=== PATIENT | female | born 1960 | race Caucasian/White ===

== ENCOUNTER 2018-04-07 09:38 | Outpatient (REF) | payer MEDICAID, SELFPAY ==
[2018-04-07 20:55] LABS: HCT 47.2 % (36.0-46.0); HGB 15.7 g/dL (12.0-15.5); Mean Corp. HGB Concentration 33.3 g/dL (32.0-36.0); Mean Corpuscular Hemoglobin 29.8 pg (27.0-33.0); Mean Corpuscular Volume 89.7 fL (80-95); Mean Platelet Volume 12.3 fL (8.0-11.0); Platelet Count 163 x1000/uL (130-400); RBC 5.26 m/cumm (4.00-5.20); RBC Distribution Width 13.2 % (11.7-14.6); White Blood Cell Count 7.22 k/cumm (4.4-10.8)
[2018-04-07 21:10] LABS: ALT 71 U/L (12-78); AST 39 U/L (15-37); Albumin 4.1 g/dL (3.4-5.0); Alkaline Phosphatase 88 U/L (46-116); Anion Gap 14.2 mmol/L (3-11); BUN 19 mg/dL (7-18); Bilirubin, Total 0.3 mg/dL (0.2-1.0); CO2 24.8 mmol/L (21.0-32.0); CREATININE 0.77 mg/dL (0.55-1.02); Calcium 9.6 mg/dL (8.5-10.1); Chloride 101 mmol/L (98-107); Cholesterol 182 mg/dL (50-200); Glucose 240 mg/dL (70-100); HDL Cholesterol 49 mg/dL (40-60); LDL CHOLESTEROL 116 mg/dL (<100); Potassium 4.5 mmol/L (3.5-5.1); Sodium 140 mmol/L (136-145); Total Protein 7.9 g/dL (6.4-8.2); Triglyceride 142 mg/dL (30-150)
[2018-04-07 21:25] LABS: Hemoglobin A1C 6.6 % (4.5-6.2)
== END 2018-04-07 09:58 ==
LOC: NCHCN 09:38
PROVIDERS: PCP Family Medicine; Visit Provider Family Medicine
DX: Z85.43 Personal history of malignant neoplasm of ovary (principal)
CPT/HCPCS: 80053; 80061; 83721; 85027; 83036; 84443

== ENCOUNTER 2019-11-23 08:16 | Outpatient (REF) | payer MEDICAID, SELFPAY ==
[2019-11-23 21:31] LABS: ALT 42 U/L (14-59); Albumin 4.2 g/dL (3.4-5.0); Alkaline Phosphatase 67 U/L (46-116); Anion Gap 10.3 mmol/L (3-11); BUN 31 mg/dL (7-18); Bilirubin, Total 0.3 mg/dL (0.2-1.0); CO2 24.7 mmol/L (21.0-32.0); CREATININE 0.92 mg/dL (0.55-1.02); Calcium 10.3 mg/dL (8.5-10.1); Calculated LDL 111 mg/dL (<100); Chloride 103 mmol/L (98-107); Cholesterol 197 mg/dL (<200); Glucose 135 mg/dL (74-106); HDL Cholesterol 40 mg/dL (40-60); Potassium 4.3 mmol/L (3.5-5.1); Sodium 138 mmol/L (136-145); Total Protein 7.5 g/dL (6.4-8.2); Triglyceride 230 mg/dL (<150)
[2019-11-23 21:42] LABS: AST 22 U/L (15-37)
== END 2019-11-23 08:36 ==
LOC: NCHCN 08:16
PROVIDERS: PCP Family Medicine; Visit Provider Family Medicine
DX: E88.81 Metabolic syndrome and other insulin resistance (principal); K76.0 Fatty (change of) liver, not elsewhere classified; E11.9 Type 2 diabetes mellitus without complications
CPT/HCPCS: 80053; 80061

== ENCOUNTER 2020-08-07 14:44 | Outpatient (REF) | payer MEDICAID, SELFPAY ==
[2020-08-07 13:56] LABS: COMMENT (LAB VIEW ONLY) 81.93 mg/dL; Microalb ug/mg Crea 4.9 ug/mg Cr
== END 2020-08-07 14:45 | disposition home or self-care (01) ==
LOC: NCHCN 14:44
PROVIDERS: PCP Family Medicine; Visit Provider Family Medicine
DX: E11.65 Type 2 diabetes mellitus with hyperglycemia (principal)
CPT/HCPCS: 82043; 82570

== ENCOUNTER 2021-01-04 20:33 | Outpatient (REF) | payer MEDICAID, SELFPAY ==
[2021-01-04 20:59] LABS: ALT 37 U/L (14-59); AST 18 U/L (15-37); Albumin 4.2 g/dL (3.4-5.0); Alkaline Phosphatase 75 U/L (46-116); Anion Gap 9.3 mmol/L (3-11); BUN 27 mg/dL (7-18); Bilirubin, Total 0.3 mg/dL (0.2-1.0); CO2 27.7 mmol/L (21.0-32.0); CREATININE 1.1 mg/dL (0.55-1.02); Calcium 10.1 mg/dL (8.5-10.1); Chloride 103 mmol/L (98-107); Glucose 168 mg/dL (74-106); Potassium 4.8 mmol/L (3.5-5.1); Sodium 140 mmol/L (136-145); Total Protein 7.7 g/dL (6.4-8.2)
[2021-01-04 21:10] LABS: Calculated LDL 111 mg/dL (<100); Cholesterol 196 mg/dL (<200); HDL Cholesterol 41 mg/dL (40-60); Triglyceride 223 mg/dL (<150)
== END 2021-01-04 20:34 | disposition home or self-care (01) ==
LOC: NCHCN 20:33
PROVIDERS: PCP Family Medicine; Visit Provider Family Medicine
DX: E66.9 Obesity, unspecified (principal); I10 Essential (primary) hypertension; E88.81 Metabolic syndrome and other insulin resistance; Z86.39 Personal history of other endocrine, nutritional and metabolic disease
CPT/HCPCS: 80053; 80061

== ENCOUNTER 2021-07-30 18:41 | Outpatient (REF) | payer MEDICAID, SELFPAY ==
[2021-07-30 17:42] LABS: COMMENT (LAB VIEW ONLY) 137.31 mg/dL; Microalb ug/mg Crea 8.7 ug/mg Cr
== END 2021-07-30 18:42 | disposition home or self-care (01) ==
LOC: NCHCN 18:41
PROVIDERS: PCP Family Medicine; Visit Provider Family Medicine
DX: E11.65 Type 2 diabetes mellitus with hyperglycemia (principal)
CPT/HCPCS: 82043; 82570

== ENCOUNTER 2022-03-01 18:16 | Outpatient (REF) | payer MEDICAID, SELFPAY | END 2022-03-01 18:17 | disposition home or self-care (01) | LOC: NCHCN 18:16 | PROVIDERS: PCP Family Medicine; Visit Provider Family Medicine | DX: R39.89 Other symptoms and signs involving the genitourinary system (principal) | CPT/HCPCS: 87086 ==

== ENCOUNTER 2022-03-22 13:06 | Outpatient (REF) | payer MEDICAID, SELFPAY ==
[2022-03-22 16:31] LABS: Anion Gap 11.2 mmol/L (3-11); BUN 25 mg/dL (7-18); CO2 25.8 mmol/L (21.0-32.0); Calcium 9.6 mg/dL (8.5-10.1); Calculated LDL 93 mg/dL (<100); Chloride 97 mmol/L (98-107); Cholesterol 194 mg/dL (<200); Glucose 248 mg/dL (74-106); HDL Cholesterol 43 mg/dL (40-60); Sodium 134 mmol/L (136-145); Triglyceride 291 mg/dL (<150)
== END 2022-03-22 13:07 | disposition home or self-care (01) ==
LOC: NCHCN 13:06
PROVIDERS: PCP Family Medicine; Visit Provider Family Medicine
DX: I10 Essential (primary) hypertension (principal); E78.5 Hyperlipidemia, unspecified; K76.0 Fatty (change of) liver, not elsewhere classified
CPT/HCPCS: 80048; 80061

== ENCOUNTER 2022-06-28 10:31 | Outpatient (REF) | payer MEDICAID, SELFPAY ==
[2022-06-28 16:16] LABS: COMMENT (LAB VIEW ONLY) 233.14 mg/dL; Microalb ug/mg Crea 7.7 ug/mg Cr
== END 2022-06-28 10:32 | disposition home or self-care (01) ==
LOC: NCHCN 10:31
PROVIDERS: PCP Family Medicine; Visit Provider Family Medicine
DX: E11.65 Type 2 diabetes mellitus with hyperglycemia (principal)
CPT/HCPCS: 82043; 82570

== ENCOUNTER 2022-08-23 15:44 | Outpatient (REF) | payer MEDICAID, SELFPAY | END 2022-08-23 15:45 | disposition home or self-care (01) | LOC: NCHCN 15:44 | PROVIDERS: PCP Family Medicine; Visit Provider Family Medicine | DX: R30.0 Dysuria (principal) | CPT/HCPCS: 87086 ==

== ENCOUNTER 2023-10-03 14:39 | Outpatient (REF) | payer MEDICAID, SELFPAY ==
[2023-10-03 14:41] LABS: Anion Gap 14.1 mmol/L (3-11); BUN 15 mg/dL (7-18); CO2 23.9 mmol/L (21.0-32.0); CREATININE 1.1 mg/dL (0.55-1.02); Calcium 9.9 mg/dL (8.5-10.1); Calculated LDL 77 mg/dL (<100); Chloride 100 mmol/L (98-107); Cholesterol 176 mg/dL (<200); Estimated GFR 56.11 (mL/min/1.73m2); Glucose 310 mg/dL (74-106); HDL Cholesterol 43 mg/dL (40-60); Potassium 3.7 mmol/L (3.5-5.1); Sodium 138 mmol/L (136-145); Triglyceride 282 mg/dL (<150)
== END 2023-10-03 14:40 | disposition home or self-care (01) ==
LOC: NCHCN 14:39
PROVIDERS: PCP Family Medicine; Visit Provider Family Medicine
DX: I10 Essential (primary) hypertension (principal); E78.5 Hyperlipidemia, unspecified
CPT/HCPCS: 80048; 80061

== ENCOUNTER 2023-12-08 15:14 | Outpatient (REF) | payer MEDICAID, SELFPAY ==
[2023-12-08 22:16] LABS: Microalb ug/mg Crea 39.8 ug/mg Cr
== END 2023-12-08 15:15 | disposition home or self-care (01) ==
LOC: NCHCN 15:14
PROVIDERS: PCP Family Medicine; Visit Provider Family Medicine
DX: E11.65 Type 2 diabetes mellitus with hyperglycemia (principal)
CPT/HCPCS: 82043; 82570

== ENCOUNTER 2025-01-24 15:10 | Outpatient (REF) | payer MEDICARE, SELFPAY ==
[2025-01-24 16:17] LABS: HCT 47.2 % (36.0-46.0); HGB 15.9 g/dL (11.2-15.7); MCH 29.8 pg (27.0-33.0); MCHC 33.7 % (32.0-36.0); MCV 88 fL (80-95); MPV 12.0 fL (8.0-11.0); Platelet Count 227 10^3/uL (130-400); RBC 5.34 10^6/uL (3.93-5.22); RDW 12.1 % (11.7-14.6); RDW-SD 39.5 fL; WBC 6.33 10^3/uL (4.4-10.8)
[2025-01-24 16:37] LABS: Anion Gap 12.5 mmol/L (3-11); BUN 17 mg/dL (7-18); CO2 26.5 mmol/L (21.0-32.0); Calcium 10.4 mg/dL (8.5-10.1); Calculated LDL 106 mg/dL (<100); Chloride 99 mmol/L (98-107); Cholesterol 222 mg/dL (<200); Estimated GFR 62.52 (mL/min/1.73m2); Glucose 266 mg/dL (74-106); HDL Cholesterol 46 mg/dL (>or=50); Potassium 4.2 mmol/L (3.5-5.1); Sodium 138 mmol/L (136-145); Triglyceride 354 mg/dL (<150)
[2025-01-24 18:10] LABS: COMMENT (LAB VIEW ONLY) 116.99 mg/dL; Microalb ug/mg Crea 62.9 ug/mg Cr
== END 2025-01-24 15:11 | disposition home or self-care (01) ==
LOC: NCHCN 15:10
PROVIDERS: PCP Family Medicine; Visit Provider Family Medicine
DX: E78.5 Hyperlipidemia, unspecified (principal); Z85.43 Personal history of malignant neoplasm of ovary; E11.65 Type 2 diabetes mellitus with hyperglycemia; I10 Essential (primary) hypertension
CPT/HCPCS: 80048; 80061; 85027; 82043; 82570